=== PATIENT | male | born 1975 | race Caucasian/White ===

== ENCOUNTER 2025-07-20 10:56 | Emergency (ER) | payer SELFPAY ==
[2025-07-20 10:58] VITALS: BP 143/92
--- NOTE | 2025-07-20 12:03 | ED.SKININJ ---
HPI-Injury
General
Chief Complaint: Bite
Source: patient
Exam Limitations: none
Time Seen by Provider: 07/20/25 11:14
Nursing documentation reviewed up to this point in time: agreed with
History of Present Illness-Injury
Initial Injury comments:
Patient is a 49-year-old male presents to the ER with dog bite to left lower leg. He works for [employer] and was walking into a house when a small dog bit his leg. Pt is unsure of his lst tetanus.
Dog has had previous vaccines however lst dose was 2020.
Phy Exam
General Physical Exam
General Presentation: well appearing
General age: appears stated age
General Skin: warm and dry
General Habitus: normal
General Mental: alert
General Hydration: appears well hydrated
Neurological Exam
Neurological Exam: alert and oriented x3
Musculoskeletal Exam
Musculoskeletal Exam: other (Left lower leg with small bite/abrasion not through to subcutaneous tissue)
Skin Exam
Skin Exam: normal color and warm/dry
Psychiatric Exam
Psychiatric Exam: normal mood/affect
Course
Orders/Labs/Results
Orders:
Orders
07/20/25 12:01
Amoxicillin 875 mg/Clav 125 mg [Augmentin 875 mg/125 mg] 1 tablet PO NOW STA
Tetanus/Diphth/Acelpertussis [Adacel] 0.5 ml IM .ONCE ONE
Vital Signs
Initial and Last Documented VS:
Initial Vital Signs
Temp Pulse Resp BP Pulse Ox
98.4 F 73 16 143/92 99
07/20/25 10:58 07/20/25 10:58 07/20/25 10:58 07/20/25 10:58 07/20/25 10:58
Last Documented Vital Signs
Temp Pulse Resp BP Pulse Ox
98.4 F 73 16 143/92 99
07/20/25 10:58 07/20/25 10:58 07/20/25 10:58 07/20/25 10:58 07/20/25 12:10
MDM/Problems Addressed
Differential Diagnosis Includes:
Not limited to dog bite
MDM/Problems Addressed:
Patient is a 49-year-old male who was working in a house, got bit to left lower leg by domesticated pet. Patient reports the dog has had previous rabies vaccines however last dose was in 2019. He reports the dog is well-appearing he has a small
left lower leg tetanus and Augmentin were ordered. Will DC with Augmentin. Animal control will need to be notified form was completed by registration as dog may need rabies vaccines however can be quarantined if needed. Patient would not require
rabies vaccines.
*Pulse Oximetry
SaO2: 99
Oxygen Mode of Delivery: Room air
Patient hypoxic: no
*Critical Care Note
Total Time (30-74mins, 75-104mins- exclusive of procedures): Not Applicable
ED Attending Note
-
Portions of this chart may have been created with voice recognition software.� Occasional wrong word or��sound alike� substitutions may have occurred due to the inherent limitations of voice recognition software.
Discharge Plan
Departure
Patient Disposition: Home (Routine Discharge)
Date of Disposition: 07/20/25
Time of Disposition: 12:14
Patient with high blood pressure during this ER visit?: Yes
Condition: Fair
Covid-19: Not Applicable
Discharge Problem:
Dog bite
Instructions: Animal Bites (DC), BLOOD PRESSURE
Prescriptions:
New
amoxicillin-pot clavulanate 875-125 mg tablet
1 tab PO BID Qty: 10 0RF
Referrals:
NONE,* [Family Provider, Internal Medicine]
Activity Restrictions/Additional Instructions:
As discussed wash twice a day with soap and water pat dry and apply nonstick dressing to the area.
Do wound care twice a day. Antibiotic twice a day for the next 5 days to prevent infection has been some send your pharmacy take as directed. Please follow-up with work health/your family doctor in the next 2 days for wound check. Return if any
signs of infection increased pain swelling redness drainage fever chills. You should be in close contact with animal control. Dog may need to be quarantined however at this time you do not require rabies vaccines.
Interventions
Interventions:
*Risk Screen - Suicide Last Done: 07/20/25 10:58
*Neglect/Abuse Screening Last Done: 07/20/25 10:58
*ED COVID-19 Vaccine History Last Done: 07/20/25 10:58
ED-Skin Assessment Last Done: 07/20/25 11:20
Discharge Date and Time
Print Language: NIGERIAN
[2025-07-20] MEDS: ADACEL 0.5 ML IM (12:17)
[2025-07-20] MEDS: AUGMENTIN 875 MG/125 MG 1 TABLET PO (12:17)
== END 2025-07-20 12:26 | disposition home or self-care (01) ==
LOC: EMR 10:56
PROVIDERS: EMERGENCY PHYSICIAN Student in an Organized Health Care Education/Training Program
DX: S81.852A Open bite, left lower leg, initial encounter (principal); R03.0 Elevated blood-pressure reading, without diagnosis of hypertension; Z23 Encounter for immunization; W54.0XXA Bitten by dog, initial encounter; Y93.01 Activity, walking, marching and hiking; Y92.009 Unspecified place in unspecified non-institutional (private) residence as the place of occurrence of the external cause; Y99.0 Civilian activity done for income or pay
CPT/HCPCS: 99283; 90471; 90715